=== PATIENT | female | born 1965 | race Caucasian/White ===

== ENCOUNTER 2022-08-07 12:02 | Outpatient (CLI) | payer OTHER, SELFPAY ==
[2022-08-07 13:54] LABS: Albumin* 4.2 g/dL (3.3-5.0)
[2022-08-07 13:55] LABS: Chloride* 105 mmol/L (96-114); Potassium* 3.6 mmol/L (3.6-5.1); Sodium* 139 mmol/L (135-149)
[2022-08-07 13:57] LABS: Alkaline Phosphatase* 80 U/L (40-150); Aspartate Amino Transferase* 29 U/L (12-35); Bilirubin Total* 0.7 mg/dL (0.1-1.5); Blood Urea Nitrogen* 11 mg/dL (7-30); Carbon Dioxide* 28 mmol/L (20-32); Creatinine* 0.7 mg/dL (0.5-1.5); Estimated Glomerular Filt Rate 100 ml/min; Total Protein* 6.5 g/dL (6.0-8.3)
[2022-08-07 13:58] LABS: Alanine Aminotransferase* 23 U/L (4-35); Calcium* 9.3 mg/dL (8.4-10.6); Glucose* 92 mg/dL (60-115); Lipase* 172 U/L (23-300)
== END 2022-08-07 12:03 | disposition home or self-care (01) ==
PROVIDERS: PCP Family Medicine; Visit Provider Family Medicine
DX: R10.13 Epigastric pain (principal)
CPT/HCPCS: 80053; 83690

== ENCOUNTER 2022-08-16 14:52 | Outpatient (CLI) | payer OTHER, SELFPAY ==
--- NOTE | 2022-08-16 16:00 | CRLHL7_ITS ---
For Patients: As a result of the Century Cures Act, medical imaging exams and procedure reports are released immediately into your electronic medical record. You may view this report before your referring provider. If you have questions, please contact your health care provider. Indication: EPIGASTRIC PAIN Technique: Postcontrast CT abdomen and pelvis. 99 cc Isovue 370 intravenous contrast. Oral water. Please note that all CT scans at this facility use dose modulation, iterative reconstruction, and/or weight-based dosing when appropriate to reduce radiation dose to as low as reasonably achievable. Comparison: None Findings: 2 centimeter hiatal hernia. Lung bases clear with the exception of mild linear subsegmental atelectasis in the lingula. No intrahepatic mass. Incidental cyst centrally measuring 9 millimeters. Gallbladder normal. Normal pancreas. Spleen normal. Normal adrenal glands. Normal kidneys and ureters. Normal appearance of the small bowel. No evidence of enteritis. No colitis. No bowel obstruction. No bladder stone. No abdominal wall hernia. Appendix appears normal. No free air, free fluid or abscess. Mild degenerative changes are present. There are vascular calcifications. No aneurysm. Mildly prominent central mesenteric lymph nodes are present within the left para midline mesenteric fat measuring up to 1.1 cm. Uterus absent. Impression: Mildly prominent central mesenteric lymph nodes within the left para midline abdomen measuring up to 1.1 cm, suggesting adenitis. 2 cm hiatal hernia. Incidental subcentimeter simple hepatic cyst. Status post hysterectomy. No pelvic soft tissue mass. Please note that all CT scans at this facility use dose modulation, iterative reconstruction, and/or weight-based dosing when appropriate to reduce radiation dose to as low as reasonably achievable. Dictated by Michel Mock MD @ 08/21/2022 9:32:37 AM (Electronically Signed)
== END 2022-08-16 14:53 | disposition home or self-care (01) ==
PROVIDERS: PCP Family Medicine; Visit Provider Family Medicine
DX: R10.13 Epigastric pain (principal); K44.9 Diaphragmatic hernia without obstruction or gangrene; K76.89 Other specified diseases of liver
CPT/HCPCS: 74177; Q9967

== ENCOUNTER 2022-09-07 09:00 | Day surgery (SDC) | payer OTHER, SELFPAY ==
[2022-09-07] VITALS (20 sets, daily range): BP systolic 103–162; BP diastolic 57–109; PULSE 70–84; RESP 14–18; TEMP 35.8–36.9; O2SAT 90–100; BMI 35.2
[2022-09-07] MEDS: LACTATED RINGERS 1000 ML 1,000 ML 100 ML IV ×2 (09:45→14:27)
[2022-09-07] MEDS: CELECOXIB 200 MG CAPSULE PO ×2 (09:55→21:45)
[2022-09-07] MEDS: ACETAMINOPHEN 500 MG TABLET 1000 MG PO ×2 (09:55→18:01)
[2022-09-07] MEDS: OXYCODONE (CR) 10 MG TAB.ER.12H PO (09:55)
--- NOTE | 2022-09-07 11:39 | SUR.PREOP ---
TIME?OUT:?1140 right knee PT/RN/MDA?VERIFICATION?OF?SURGICAL?SITE,?PROCEDURE,?AND?CONSENT OBTAINED?PRIOR?TO?INVASIVE?PROCEDURE.
[2022-09-07] MEDS: MIDAZOLAM HCL 1 MG/ML inj IVP (11:42)
[2022-09-07] MEDS: fentaNYL 100 MCG/2 ML inj IVP (11:42)
[2022-09-07] MEDS: CEFAZOLIN 2 GM INJ IVP (12:20)
[2022-09-07] MEDS: TRANEXAMIC ACID 100 MG/ML INJ 1000 MG IV (12:25)
--- NOTE | 2022-09-07 14:00 | CRLHL7_ITS ---
For Patients: As a result of the Cures Act, medical imaging exams and procedure reports are released immediately into your electronic medical record. You may view this report before your referring provider. If you have questions, please contact your health care provider. Indication: POST OP RT TKA Technique: Two views right knee Findings/Impression: Hardware from a right total knee arthroplasty is in satisfactory position. Bone alignment is normal. No sign of acute fracture. Postop changes are within normal limits. Dictated by Michel Mock MD @ 09/07/2022 3:27:30 PM (Electronically Signed)
--- NOTE | 2022-09-07 14:02 | PM.ORPRC ---
Procedure Note Date of procedure: 09/07/22 Procedure: PREOPERATIVE DIAGNOSIS: Right knee osteoarthritis, retained ACL hardware POSTOPERATIVE DIAGNOSIS: Right knee osteoarthritis, retained ACL hardware NAME OF OPERATION: Right total knee arthroplasty, hardware removal deep SURGEON: Iker Jiang MD DRILL SHARPENER: Yeny Díaz PA-C ANESTHESIA: Spinal ESTIMATED BLOOD LOSS: 0 mL COMPLICATIONS: None SPECIMENS: None DRAINS: None PREOPERATIVE ANTIBIOTICS: Ancef 2 grams IMPLANTS: 1. J&J Attune #6 posterior stabilized femur 2. #6 fixed-bearing tibia 3. #6 posterior stabilized, 5 mm fixed-bearing polyethylene 4. 35 patella INDICATIONS: The patient is a 57-year-old with a longstanding history of severe, unrelenting right knee pain secondary to end-stage (grade IV) right knee osteoarthritis after failed ACL reconstruction. Despite appropriate nonoperative management, including activity modification, anti-inflammatories, [id number] pain medication, bracing, physical therapy, and injections they continue to have pain and disability. Operative intervention was offered. The risks, benefits and expected outcomes were discussed in detail. These included but were not limited to: Infection, bleeding, injury to blood vessel or nerve, venous thromboembolism. All questions were answered to their satisfaction. Use of an social science research assistant was necessary throughout the case for patient positioning and safety, soft tissue retraction, and closure. PROCEDURE: Spinal anesthesia was administered. The patient was placed supine on the operating table. The social science research assistant made sure the patient was positioned appropriately. The lower extremity was prepped and draped in the usual sterile fashion. The limb was exsanguinated with the Jhon bandage. The pneumatic tourniquet was inflated to 300 mmHg. A standard anterior incision was made with the knee in flexion. Subcutaneous dissection was sharply taken through fascial layer #1. Full-thickness medial and lateral flaps were elevated. The social science research assistant retracted the soft tissues and protected them throughout the case. A standard medial parapatellar approach was made. The patella was everted. The infrapatellar fat pad was preserved. The menisci and cruciate ligaments were sharply d?brided. Marginal osteophytes were d?brided with the rongeur. The drill was used to penetrate the femoral canal. The canal was aspirated and irrigated with pulse lavage. The intramedullary femoral guide was placed for a 5-degree valgus cut, removing 10 mm off the distal femur. The saw was used to make the cut. Whitesides line and the trans epicondylar axis were marked. The femoral sizing guide was pinned onto the distal femur. Three degrees of external rotation nicely parallels the transepicondylar axis. Pins were placed for posterior referencing. The four-in-one cutting guide was pinned onto the distal femur. The anterior, posterior, and chamfer cuts were made. The social science research assistant protected the collateral ligaments. The box cutting guide was pinned. The box cuts were made. This exposed the femoral ACL interference screw. The screwdriver was used to remove the screw, intact. The boxed trial was placed and was an excellent fit. Drill holes for the lugs were made. Attention was then turned to the proximal tibia. The extramedullary tibial guide was placed for a neutral varus/valgus cut with 5 degrees of posterior slope, removing 2 mm based off the medial tibial surface. The social science research assistant protected the collateral ligaments and the neurovascular bundle. The saw was used to make the cut. This exposed the proximal tip of the tibial ACL interference screw. We followed the screw to the anteromedial face of the tibia and exposed it with the scalpel, rongeur and curette. The screw was removed intact. Tibial ACL tunnel was full of fat. This was debrided with the curette and rongeur. Trial components were placed. The knee was nicely balanced in both flexion and extension. The trial components were removed. The tray was placed in appropriate rotation, parallel to our tibial cutting pins. It was pinned by the social science research assistant and the drill and the punch were used. The tray was removed. The punch was used again. We placed a bone plug in the femoral canal. A bone plug was placed in both the femoral and tibial ACL interference screw tracts. Attention was then turned to the patella. [place] patellar thickness was 22 mm. The lobster claw resection guide was used with the 7.5 mm chino. The saw was used to make the cut. Drill holes were made by the social science research assistant. The trial was placed and was an excellent fit. Cancellous surfaces were irrigated with pulse lavage and thoroughly dried by the social science research assistant. We cemented the tibial component, then the femoral component. We impacted the 5 mm polyethylene onto the tibial tray. The knee was brought into full extension. We then cemented the patellar component. Excessive cement was removed. The cement was allowed to harden. The knee was taken through a range of motion and was found to be nicely balanced in both flexion and extension. The patella tracks centrally. The social science research assistant did a three minute dilute Betadine solution soak. The social science research assistant irrigated the wound with 3 liters of normal saline via pulse lavage. The social science research assistant reapproximated the extensor mechanism with #1 Vicryl in an interrupted [id number] fashion. The social science research assistant then ran the extensor mechanism with a #1 PDO Stratafix. The social science research assistant closed the subcutaneous tissues with a 3-0 Stratafix and the skin with a running 3-0 Stratafix in a subcuticular fashion. Glue was used to seal the skin. The social science research assistant placed a dry dressing, ELZA stocking, and Polar Care. Sponge and needle counts were correct x2. The patient tolerated the procedure well. There were no apparent complications. They were carefully transferred to the hospital bed and taken to the postanesthesia care unit in satisfactory condition. PLAN: The patient will be mobilized with physical therapy. Aspirin will be used for DVT prophylaxis. They will be discharged to home once medically appropriate.
--- NOTE | 2022-09-07 14:29 | W.PM.NB ---
Nerve Block Nerve Block Date Seen: 09/07/22 Type of block requested by surgeon for post-operative analgesia: adductor canal Side: right Time out performed: Yes Verification of patient name: Yes Verification of date of : Yes Site marking: site marked Name of person performing procedure: Polo Continuous monitoring Was continuous monitoring of O2 sat, B/P, manager cardiac, recorded every 15 minutes?: Yes Procedure Checklist: sterile prep, needles and gloves Ultrasound guided. Images saved: Yes Medications given in 5ml increments after negative aspiration: Ropivicaine %: 0.5 mL: 20 Needle gauge: 20 Decadron (mg): 10 Precedex (mcg): 25 Patient tolerated procedure well: Yes Additional comments: Needle noted adjacent to nerve Block Charges Block Charge (with Pro Fee): Femoral Nerve Use of Ultrasound Machine for Block: Yes- US Guidance/pain block
--- NOTE | 2022-09-07 14:30 | W.PM.NB ---
Nerve Block Nerve Block Date Seen: 09/07/22 Type of block requested by surgeon for post-operative analgesia: geniculars Side: right Time out performed: Yes Verification of patient name: Yes Verification of date of : Yes Site marking: site marked Name of person performing procedure: Polo Continuous monitoring Was continuous monitoring of O2 sat, B/P, athletic monitor, recorded every 15 minutes?: Yes Procedure Checklist: sterile prep, needles and gloves Medications given in 5ml increments after negative aspiration: Ropivicaine %: 0.5 mL: 9 Needle gauge: 25 Patient tolerated procedure well: Yes Block Charges Block Charge (with Pro Fee): Genicular Nerve Block Use of Ultrasound Machine for Block: No
--- NOTE | 2022-09-07 14:30 | W.ANESCHARGE ---
Anesthesia Charges Start Date/Time Anesthesia Start Date: 09/07/22 Anesthesia Start Time: 12:18 Stop Date/Time Anesthesia Stop Date: 09/07/22 Anesthesia Stop Time: 14:52 Summary Emergency: No
--- NOTE | 2022-09-07 14:51 | W.ANESCHARGE ---
Anesthesia Charges Start Date/Time Anesthesia Start Date: 09/07/22 Anesthesia Start Time: 12:18 Stop Date/Time Anesthesia Stop Date: 09/07/22 Anesthesia Stop Time: 14:52 Summary Emergency: No
--- NOTE | 2022-09-07 15:25 | SUR.PHASEI ---
patient meets pacu d/c criteria
[2022-09-07] MEDS: HYDROmorphone 0.5 mg/0.5 ml inj IVP (16:36)
[2022-09-07] MEDS: LACTATED RINGERS 1000 ML 1,000 ML 75 ML IV (16:41)
[2022-09-07] MEDS: CEFAZOLIN 2 GM in 0.9 % SODIUM CHLORIDE Mini-bag 100 ML IVPB (18:02)
[2022-09-07] MEDS: 0.9 % SODIUM CHLORIDE 500 ML IV (18:51)
--- NOTE | 2022-09-07 18:57 | PC.NURSE ---
Admission note: Pt brought to the unit on a bed by a member of SDS team at 1530. Conscious, A/O on arrival. Vitally stable but complained of chill. Heat applied. Dressing appeared dry and clean. Pt felt numbness to the right leg but able to wiggle the toes and slightly move the right leg. Pulse present, capillary refill<3 sec. Denied pain, nausea and vomiting. Lungs sound clear and hypo bowel sound. Icechips started and progressed to water 3hr after arrival. Cryo cuff applied, ELZA and SCD applied. IV ringers lactate 1000ml set up at 75/hr. Post op assessment for the first 6 hrs started at 1545. Pt complained of knee pain of 10, Deluded given. Attempt made to ambulate pt to BR and and recliner was refused by pt, rather opted rest. Pt complained of feeling hungry, regular diet started and pt able to eat about 50% and seems to tolerate meal very well. At 1830, pt has not pass urine, N/S 500ml bolus started.
[2022-09-07] MEDS: SENNOSIDES 1 TAB TABLET 2 TAB PO (21:45)
[2022-09-07] MEDS: ASPIRIN 81 MG TABLET EC PO (21:47)
[2022-09-07] MEDS: OXYCODONE 5 MG TABLET PO (21:47)
--- NOTE | 2022-09-07 22:28 | PC.NURSE ---
Pt up with assist of 1 and walker with gait belt. She vvoided x1 after 1 500cc bolus. IVF cont to infuse at this time. She is tolerating reg diet. Pain controlled with scheduled meds and oxycodone prn.
--- NOTE | 2022-09-07 22:33 | P.IMCN_ITS ---
Date of Consult Patient: [facility] Patient Consult date: 09/07/22 Requesting Physician: Orthopedics Primary Care Provider: Michel Kaplan MD Consult Narrative Reason for consult: Medical management of comorbidities Narrative: Fozia Yee is a 57 year old female who presented to the hospital today for an elective right TKA. There were no surgical or anesthetic complications noted during procedure. Patient's H&P reviewed, PCP is Dr. Kaplan. Past medical history significant for: LILA (not on CPAP), insomnia. History of blood clots: No within Postoperative plan: Home with partner Review of Systems Status of ROS: Reports: 10 or more systems reviewed and unremarkable except as noted in History and below PFSH [facility] Medical History (Updated 08/15/22 @ 20:54 by Michel Kaplan MD) Asthma COVID-19 GERD (gastroesophageal reflux disease) Insomnia Mild intermittent asthma Obstructive sleep apnea Osteoarthritis of right knee Osteoporosis Polymyalgia rheumatica Vitamin D deficiency Surgical History (Updated 09/07/22 @ 22:44 by Jamee Calzada MD) History of hysterectomy History of nasal septoplasty History of repair of congenital cleft palate History of right knee surgery S/P left knee arthroscopy (06/14/21) S/P trigger finger release (01/31/08) Social History (Updated 08/07/22 @ 22:36 by Michel Kaplan MD) Narrative: Single, no kids, Daikin Smoking Status: Never smoker Do you use any of these nicotine containing products: None How often do you have a drink containing alcohol: 2-3 times a week Alcohol type: beer How many standard drinks containing alcohol do you have on a typical day: 3 or 4 How often do you have six or more drinks on one occasion: Monthly AUDIT-C Alcohol total score: 6 Non-prescribed substance use: denies use Caffeine: No Are you using contraception or practicing any form of control: No Meds Home Medications and Allergies Home Medications Medication Instructions Recorded Confirmed Type piroxicam 20 mg capsule 20 mg PO DAILY 07/21/22 09/07/22 History omeprazole 20 mg capsule,delayed 20 mg PO DAILY 09/06/22 09/07/22 History release Allergies Allergy/AdvReac Type Severity Reaction Status Date / Time No Known Drug Allergies Allergy Verified 09/07/22 09:14 Exam Narrative: Exam Narrative: GEN: Alert and oriented, nontoxic in appearance HEENT: Normal external ears, EOMIs bilaterally, no scleral icterus CV: RRR, No concerning murmurs, rubs, or gallops R: LCTA bilaterally without concerning wheezing, rales, or rhonchi Ext: wwp, no concerning edema Skin: No concerning skin lesions or rashes on exposed skin Neuro: Nonfocal Psych: Appropriate Const: Vital Signs, click to edit/add: Vital Signs - 24 hr 09/07/22 09:27 09/07/22 11:40 09/07/22 11:50 Temperature 97.6 F Pulse Rate 72 74 70 Pulse Rate [Right Pulse Oximeter] Respiratory Rate 18 16 16 Blood Pressure 135/70 122/67 109/59 L Blood Pressure [Le ft Arm] Pulse Oximetry 98 96 95 Oxygen Delivery Me thod Room Air Nasal Cannula Nasal Cannula Oxygen Flow Rate 2 2 09/07/22 14:48 09/07/22 14:55 09/07/22 15:00 Temperature 97.7 F Pulse Rate 72 71 75 Pulse Rate [Right Pulse Oximeter] Respiratory Rate 14 16 16 Blood Pressure 103/60 111/60 133/67 Blood Pressure [Le ft Arm] Pulse Oximetry 97 93 100 Oxygen Delivery Me thod Room Air Oxygen Flow Rate 09/07/22 15:05 09/07/22 15:10 09/07/22 15:15 Temperature 98.4 F Pulse Rate 76 76 71 Pulse Rate [Right Pulse Oximeter] Respiratory Rate 16 14 16 Blood Pressure 107/94 H 121/91 H 111/75 Blood Pressure [Le ft Arm] Pulse Oximetry 99 97 93 Oxygen Delivery Me thod Oxygen Flow Rate 09/07/22 16:24 09/07/22 15:45 09/07/22 16:00 Temperature 96.4 F L 96.8 F L 97 F L Pulse Rate Pulse Rate [Right Pulse Oximeter] 73 76 71 Respiratory Rate 18 18 18 Blood Pressure Blood Pressure [Le ft Arm] 117/91 H 119/96 H 127/57 L Pulse Oximetry 95 96 97 Oxygen Delivery Me thod Room Air Room Air Room Air Oxygen Flow Rate 09/07/22 16:15 09/07/22 16:30 09/07/22 17:30 Temperature 97 F L 97.4 F L 97.5 F L Pulse Rate Pulse Rate [Right Pulse Oximeter] 74 77 83 Respiratory Rate 18 18 18 Blood Pressure Blood Pressure [Le ft Arm] 153/82 H 151/109 H 162/80 H Pulse Oximetry 98 99 95 Oxygen Delivery Me thod Room Air Room Air Room Air Oxygen Flow Rate 09/07/22 19:18 09/07/22 20:24 09/07/22 20:24 Temperature 97.2 F L 97.1 F L 97.1 F L Pulse Rate 79 Pulse Rate [Right Pulse Oximeter] 84 79 Respiratory Rate 18 18 18 Blood Pressure 127/78 Blood Pressure [Le ft Arm] 162/80 H 127/78 Pulse Oximetry 90 98 98 Oxygen Delivery Me thod Room Air Room Air Oxygen Flow Rate 09/07/22 19:00 09/07/22 20:10 Temperature 97.2 F L 97.1 F L Pulse Rate Pulse Rate [Right Pulse Oximeter] 79 79 Respiratory Rate 18 18 Blood Pressure Blood Pressure [Le ft Arm] 137/69 127/78 Pulse Oximetry 98 Oxygen Delivery Me thod Room Air Room Air Oxygen Flow Rate Assessment and Plan Assessment and plan (1) Status post right knee replacement: Problem comment: - 09/07/22 Status: Acute Plan - pain management and prophylaxis per orthopedic surgery team - continue home medications for comorbidities - anticipate routine postoperative course
[2022-09-08] MEDS: OXYCODONE 5 MG TABLET PO ×2 (01:23→05:54)
[2022-09-08] MEDS: ACETAMINOPHEN 500 MG TABLET 1000 MG PO ×2 (01:25→05:53)
[2022-09-08] MEDS: CEFAZOLIN 2 GM in 0.9 % SODIUM CHLORIDE Mini-bag 100 ML IVPB ×2 (01:26→10:13)
[2022-09-08 06:34] LABS: Basophils Percent Auto 0.1 % (0.0-3.0); Hematocrit 39.9 % (33.0-51.0); Hemoglobin* 13.3 gm/dL (12.0-16.0); Immature Granulocytes Pct Auto 0.3 %; Lymphocytes Percent Auto 9.3 % (20-44); Mean Corpuscular HGB Conc 33 gm/dL (32-36); Mean Corpuscular Hemoglobin 31 pg (26-34); Mean Corpuscular Volume 92 fL (80-100); Monocytes Percent Auto 6.7 % (0.0-11.0); Neutrophils Percent Auto 83.6 % (42.0-72.0); Platelet Count* 386 K/uL (140-440); RDW Coefficient of Variation % 11.8 % (11.5-15.5); Red Blood Count 4.34 m/uL (4.00-5.20); White Blood Count* 15.66 K/uL (4.50-11.00)
[2022-09-08 06:52] LABS: Slide Review Reflex No
[2022-09-08 06:53] LABS: Potassium* 4.4 mmol/L (3.6-5.1); Sodium* 137 mmol/L (135-149)
[2022-09-08 06:56] LABS: Blood Urea Nitrogen* 11 mg/dL (7-30); Creatinine* 0.6 mg/dL (0.5-1.5); Est. Creatinine Clearance* 95.68; Estimated Glomerular Filt Rate 104 ml/min
[2022-09-08 07:00] VITALS: BP 120/62; PULSE 66; RESP 18; TEMP 36; O2SAT 100
[2022-09-08 07:00] LABS: INR 0.92 (0.91-1.10); Prothrombin Time 12.9 Seconds
[2022-09-08] MEDS: SENNOSIDES 1 TAB TABLET 2 TAB PO (08:21)
[2022-09-08] MEDS: CELECOXIB 200 MG CAPSULE PO (08:22)
[2022-09-08] MEDS: ASPIRIN 81 MG TABLET EC PO (08:22)
--- NOTE | 2022-09-08 08:31 | P.ORPN_ITS ---
Subjective Subjective Time Seen by Provider: 07:30 Date Seen: 09/08/22 Principal diagnosis: Status post right knee replacement Interval history: Fozia is comfortable this morning. She got minimal sleep last night. She will be discharging to today. She requests a handicap parking permit. Ortho Exam Narrative Exam Narrative: Alert and oriented x3. Patient is in no acute distress. Converses without labored breathing. Hearing is grossly intact. Ambulates with a walker. Examination of the right knee shows dressing is in place. Mild soft tissue edema. Mild effusion. Bilateral calves are soft and nontender. CMS is intact right lower extremity. Strong quads Const Vital Signs, click to edit/add: Vital Signs - 24 hr 09/07/22 09:27 09/07/22 11:40 09/07/22 11:50 Temperature 97.6 F Pulse Rate 72 74 70 Pulse Rate [Right Pulse Oximeter] Respiratory Rate 18 16 16 Blood Pressure 135/70 122/67 109/59 L Blood Pressure [Left Arm] Pulse Oximetry 98 96 95 Oxygen Delivery Method Room Air Nasal Cannula Nasal Cannula Oxygen Flow Rate 2 2 09/07/22 14:48 09/07/22 14:55 09/07/22 15:00 Temperature 97.7 F Pulse Rate 72 71 75 Pulse Rate [Right Pulse Oximeter] Respiratory Rate 14 16 16 Blood Pressure 103/60 111/60 133/67 Blood Pressure [Left Arm] Pulse Oximetry 97 93 100 Oxygen Delivery Method Room Air Oxygen Flow Rate 09/07/22 15:05 09/07/22 15:10 09/07/22 15:15 Temperature 98.4 F Pulse Rate 76 76 71 Pulse Rate [Right Pulse Oximeter] Respiratory Rate 16 14 16 Blood Pressure 107/94 H 121/91 H 111/75 Blood Pressure [Left Arm] Pulse Oximetry 99 97 93 Oxygen Delivery Method Oxygen Flow Rate 09/07/22 16:24 09/07/22 15:45 09/07/22 16:00 Temperature 96.4 F L 96.8 F L 97 F L Pulse Rate Pulse Rate [Right Pulse Oximeter] 73 76 71 Respiratory Rate 18 18 18 Blood Pressure Blood Pressure [Left Arm] 117/91 H 119/96 H 127/57 L Pulse Oximetry 95 96 97 Oxygen Delivery Method Room Air Room Air Room Air Oxygen Flow Rate 09/07/22 16:15 09/07/22 16:30 09/07/22 17:30 Temperature 97 F L 97.4 F L 97.5 F L Pulse Rate Pulse Rate [Right Pulse Oximeter] 74 77 83 Respiratory Rate 18 18 18 Blood Pressure Blood Pressure [Left Arm] 153/82 H 151/109 H 162/80 H Pulse Oximetry 98 99 95 Oxygen Delivery Method Room Air Room Air Room Air Oxygen Flow Rate 09/07/22 19:18 09/07/22 20:24 09/07/22 20:24 Temperature 97.2 F L 97.1 F L 97.1 F L Pulse Rate 79 Pulse Rate [Right Pulse Oximeter] 84 79 Respiratory Rate 18 18 18 Blood Pressure 127/78 Blood Pressure [Left Arm] 162/80 H 127/78 Pulse Oximetry 90 98 98 Oxygen Delivery Method Room Air Room Air Oxygen Flow Rate 09/07/22 19:00 09/07/22 20:10 09/07/22 23:00 Temperature 97.2 F L 97.1 F L Pulse Rate Pulse Rate [Right Pulse Oximeter] 79 79 Respiratory Rate 18 18 Blood Pressure Blood Pressure [Left Arm] 137/69 127/78 Pulse Oximetry 98 98 Oxygen Delivery Method Room Air Room Air Oxygen Flow Rate Assessment and Plan Assessment and plan (1) Status post right knee replacement: Problem details: - 09/07/22 Status: Acute Assessment and Plan: Plan for discharge is today to home if they meet discharge criteria. DVT prophylaxis includes aspirin 81 mg twice daily x1 month, Hever stockings x1 month may remove for 1 hr per day, frequent ambulation Remove dressing in 1 week. Observe wound and phone Orthopedics with any questions or concerns Return to clinic in 1 week for a wound check Return to clinic in [address] Jiang Minimize narcotic use. Wean off and discontinue soon as possible. Activities as tolerated. No strenuous activity. Outpatient physical therapy as scheduled. Ice and elevate the operative extremity. No restriction on ice. A handicap parking permit will be filled out and ready for her or a family member to pickling operator in the [place] office.
--- NOTE | 2022-09-08 09:16 | REH.OT ---
Orders received for OT eval and treat post RTKA. Formal evaluation not needed. Patient I in dressing and has no concerns with discharging home.
[2022-09-08 09:21] VITALS: BP 127/78; PULSE 79; RESP 18; TEMP 36
--- NOTE | 2022-09-08 11:34 | PC.NURSE ---
PATIENT DISCHARGED TO HOME WITH SIGNIFICANT OTHER, PATIENT RATING PAIN 0 AT REST TO HURTS LIKE HELL WITH MOVEMENT, OFFERED OXYCODONE AND PATIENT DECLINED I DO NOT WANT ANYMORE OF THAT, CYRO CUFF TO SITE AND TAKING SCHEDULED TYLENOL, TOLERATING REGULAR DIET NO NAUSEA, DRESSING TO RIGHT KNEE CDI, PATIENT VERBALIZED UNDERSTANDING OF DISCHARGE INFORMATION AND HAD NO FURTHER QUESTIONS AT THIS TIME, IV REMOVED, BELONGINGS SENT WITH PATIENT, LEFT TO HOME WITH SIGNIFICANT OTHER VIA WHEELCHAIR AROUND 1115.
--- NOTE | 2022-09-08 12:51 | SUR.PREOP ---
I reviewed Lilia's pre-op charting and found it to be complete to the best of my knowledge. I entered the completed by information in pre-op so the chart could be verified.
== END 2022-09-08 11:15 | disposition home or self-care (01) ==
LOC: OR 09:32 → MEDSURG 09:35
PROVIDERS: PCP Family Medicine; Visit Provider Orthopaedic Surgery
PROC: (CPT 27447; principal; 2022-09-07 11:30)
DX: M17.11 Unilateral primary osteoarthritis, right knee (principal); M25.561 Pain in right knee; G47.33 Obstructive sleep apnea (adult) (pediatric); J45.20 Mild intermittent asthma, uncomplicated; M35.3 Polymyalgia rheumatica; M81.0 Age-related osteoporosis without current pathological fracture; G47.00 Insomnia, unspecified; K21.9 Gastro-esophageal reflux disease without esophagitis
CPT/HCPCS: 27447; 01402; 36415; 64447; 64454; 73560; 76942; 82565; 84132; 84295; 84520; 85025; 85610; 97110; 97161; A9270; C1776; J0690; J1100; J1170; J2250; J2405; J2704; J2795; J3010; J7120

== ENCOUNTER 2023-02-26 10:23 | Outpatient (CLI) | payer OTHER, SELFPAY ==
--- OUTSIDE RECORDS SUMMARY | 2023-02-26 10:28 | XMS_ITS | Continuity of Care Document ---
Author Name Unknown Organization [facility] Address [address] [place] [address] Phone Care Team Providers Care Research Program Internship Name Role Phone Ziggy Waters DO Unavailable Unavailable Allergies, Adverse Reactions, Alerts Substance Reaction Status Criticality No Known Allergies Active No Inform ation Medications Medication Instructions Dosage Effective Dates (start - stop) Status Comments piroxicam 20 mg capsule take 1 capsule by oral route every day 20 MG - Active tramadol 50 mg tablet take 1-2 tablets by oral route every 4 - 6 hours as needed - Active prednisone 1 mg tablet 2mg daily - No Longer Active Procedures Procedure Date Office/Outpatient Visit, Est Routine Venipuncture Rbc Sed Rate, Nonautomated CReactive Protein Complete Cbc WAuto Diff Wbc Office/Outpatient Visit, Est Routine Venipuncture Rbc Sed Rate, Nonautomated CReactive Protein Complete Cbc WAuto Diff Wbc Office/Outpatient Visit, Est Office/Outpatient Visit, Est Routine Venipuncture Rbc Sed Rate, Nonautomated CReactive Protein Complete Cbc WAuto Diff Wbc Office/Outpatient Visit, Est Routine Venipuncture Rbc Sed Rate, Nonautomated CReactive Protein Complete Cbc WAuto Diff Wbc Office/Outpatient Visit, Est Routine Venipuncture Rbc Sed Rate, Nonautomated CReactive Protein Complete Cbc WAuto Diff Wbc Office/Outpatient Visit, Est Routine Venipuncture Rbc Sed Rate, Nonautomated CReactive Protein Complete Cbc WAuto Diff Wbc Office/Outpatient Visit, Est Office/Outpatient Visit, Est Routine Venipuncture Rbc Sed Rate, Nonautomated CReactive Protein Complete Cbc WAuto Diff Wbc Office/Outpatient Visit, Est Routine Venipuncture Specimen Handling Rbc Sed Rate, Nonautomated Assay Of Serum Albumin Assay Of Creatinine Transferase (Ast) (Sgot) Alanine Amino (Alt) (Sgpt) CReactive Protein CCP Antibody Complete Cbc WAuto Diff Wbc Results Test Name Date and Time Measure Units Reference Range Abnormal Flag Status Commen ts Panel Description: CBC 5 part diff Final Neutrophils# 12:19:00 3.29 K/uL 2.00-7.50 Final Neutrophil % 12:19:00 54.00 % 0.00-99.00 Final Eosinophil # 12:19:00 0.45 K/uL 0.00-0.50 Final Eosinophil % 12:19:00 7.40 % 0.00-7.00 H Final Basophil # 12:19:00 0.04 K/uL 0.00-0.20 Final Basophil % 12:19:00 0.60 % 0.00-99.00 Final WBC 12:19:00 6.1 K/uL 4.0-10.0 Final RBC 12:19:00 4.44 M/uL 3.80-5.80 Final Hemoglobin 12:19:00 13.7 g/dL 11.5-16.0 Final Hematocrit 12:19:00 42.1 % 37.0-47.0 Final MCV 12:19:00 95 fL 80-100 Final MCH 12:19:00 31.0 pg 27.0-32.0 Final MCHC 12:19:00 32.6 g/dL 32.0-36.0 Final RDW 12:19:00 12.2 % 11.0-16.0 Final Platelet Count 12:19:00 259 K/uL 150-500 Final MPV 12:19:00 7.2 fL 6.0-11.0 Final Lymphocyte% 12:19:00 31.20 % 25.00-50.00 Final Lymphocyte # 12:19:00 1.9 K/uL 1.0-4.0 Final Monocytes # 12:19:00 0.41 K/uL 0.20-1.00 Final Monocytes % 12:19:00 6.80 % 2.00-10.00 Final Panel Description: ESR Final ESR 12:32:00 7 mm/hr 0-25 Final Panel Description: CRP Final CRP 13:22:00 0.24 MG/DL 0.00-0.60 Final Advance Directives Directive Yes / No Effective Date File Name No Information Encounters Encounter Description Practice Location Reason(s) For Visit Diagnoses Date Provider Providers Copied on Encounter Office/Outpa tient Visit, Est [facility], [address], [place], [address], [place] tel:[phone] [facility] , PMR (chief complaint) MCFP (current) use of systemic steroidsPoly myalgia rheumaticaTr igger finger, left middle finger 2 Jt Trinh. [facility] [address], [place], [address], [place]. tel:[phone] Referring Provider: Ziggy Jamison, [facility] [address], [place], [address]. tel:[phone] Office/Outpa tient Visit, Est [facility], [address], [place], [address], [place] tel:[phone] [facility] , PMR (chief complaint) Polymyalgia rheumaticaLo ng term (current) use of systemic steroids 2 Jt Trinh. [facility] [address], [place], [address], [place]. tel:[phone] Referring Provider: Ziggy Jamison, [facility] [address], [place], [address]. tel:[phone] Office/Outpa tient Visit, Est [facility], [address], [place], [address], [place] tel:[phone] [facility] , PMR (chief complaint) Pain in unspecified jointPolymya lgia rheumaticaAn terior chest-wall pain NOS 1 Jt Trinh. [facility] [address], [place], [address], [place]. tel:[phone] Referring Provider: Ziggy Jamison, [facility] [address], [place], [address]. tel:[phone] Office/Outpa tient Visit, Est [facility], [address], [place], [address], [place] tel:[phone] [facility] , PMR (chief complaint) Pain in unspecified jointPolymya lgia rheumaticaAn terior chest-wall pain NOS 1 Jt Trinh. [facility] [address], [place], [address], [place]. tel:[phone] Referring Provider: Ziggy Jamison, [facility] [address], [place], [address]. tel:[phone] Office/Outpa tient Visit, Est [facility], [address], [place], [address], [place] tel:[phone] [facility] , Acute bronchitis, unspecifiedP ain in unspecified jointPolymya lgia rheumatica 1 Jt Trinh. [facility] [address], [place], [address], [place]. tel:[phone] Referring Provider: Ziggy Jamison, [facility] [address], [place], [address]. tel:[phone] Office/Outpa tient Visit, Est [facility], [address], [place], [address], [place] tel:[phone] [facility] , Acute bronchitis, unspecifiedP ain in unspecified jointPolymya lgia rheumatica 0 Jt Trinh. [facility] [address], [place], [address], [place]. tel:[phone] Referring Provider: Ziggy Jamison, [facility] [address], [place], [address]. tel:[phone] Office/Outpa tient Visit, Est [facility], [address], [place], [address], [place] tel:[phone] [facility] , Pain in unspecified jointPolymya lgia rheumaticaAc [place] bronchitis, unspecified Dec- 0 Jt Trinh. [facility] [address], [place], [address], [place]. tel:[phone] Referring Provider: Ziggy Jamison, [facility] [address], [place], [address]. tel:[phone] Office/Outpa tient Visit, Est [facility], [address], [place], [address], [place] tel:[phone] [facility] , Pain in unspecified jointPolymya lgia rheumaticaEl evated erythrocyte sedimentatio n rateAcute bronchitis, unspecified 0 0 Jt Trinh. [facility] [address], [place], [address], [place]. tel:[phone] Referring Provider: Ziggy Jamison, [facility] [address], [place], [address]. tel:[phone] Office/Outpa tient Visit, Est [facility], [address], [place], [address], [place] tel:[phone] [facility] , Polymyalgia rheumaticaPa in in unspecified jointElevate d erythrocyte sedimentatio n rate Sep-2 0- 9 Jt Trinh. [facility] [address], [place], [address], [place]. tel:[phone] Referring Provider: Ziggy Jamison, [facility] [address], [place], [address]. tel:[phone] Office/Outpa tient Visit, Est [facility], [address], [place], [address], [place] tel:[phone] [facility] , Pain in unspecified jointMyalgia , unspecified siteElevated erythrocyte sedimentatio n rateOther fatigue 0201 9 Jt Trinh. [facility] [address], [place], [address], [place]. tel:[phone] Referring Provider: Ziggy Jamison, [facility] [address], [place], [address]. tel:[phone] Family History Family Member Type Diagnosis Age At Onset Brother Problem (finding) Cardiovascular disease Mother Problem (finding) osteoarthritis Brother Problem (finding) Cancer, unknown Brother Problem (finding) Renal disease Brother Problem (finding) disorder of lung Brother Problem (finding) osteoarthritis Sister Problem (finding) Cancer, unknown Immunizations Vaccine Date Status Comments COVID-19 Pfizer administered Source: Othe r Provider COVID-19 Pfizer administered Source: Othe r Provider Payers Payer name Insurance type Covered green party ID [facility]it [id number] Social History Type Description Quantity Date Captured Comments Alcohol Use Details Unknown Caffeine Use Details Unknown Tobacco Use Status Current non-smoker Smoking Status Never smoker Non-Smoking Tobacco Use Details : No Details Available : No Details Available Sex Female Vital Signs Date / Time: Height Weight BMI Pulse Rate Blood Pressure Temperature Respiratory Rate Body Surface Area Head Circumference Head Circ. Percentile Wt./Suresh. Percentile BMI percentile Pulse Ox Inhaled Ox 11:43 AM 65.50 in 97.795 kg (215.60 lbs) 35.3 3 kg/m eter (2) 130/78 mm[Hg] 97.40 F Chief Complaint And Reason For Visit From encounter dated '02/10/2022 11:30'. PMR (chief complaint) Reason For Referral Reason For Referral No Information Plan Of Treatment Date Type Action Status No Information History Of Present Illness Encounter Date Complaint History Of Prese nt Illness PMR PMR PMR PMR Functional Status Date Functional Assessmen t No Information Instructions Date Instruction Additional Infor mation No Information Assessments Type Assessment Date assessment MCFP (current) use of syste fortino steroids assessment Polymyalgia rheumatica assessment Trigger finger, left middle fing er Mental Status Date Cognitive Assessment Orientation - [place] ed to time, place, person, situation. Patient Care Teams Name Effective Dates (start - stop) Status Members No Information
== END 2023-02-26 10:24 | disposition home or self-care (01) ==
PROVIDERS: PCP Family Medicine; Visit Provider Family Medicine
DX: Z00.00 Encounter for general adult medical examination without abnormal findings (principal); R53.83 Other fatigue; E55.9 Vitamin D deficiency, unspecified; Z13.6 Encounter for screening for cardiovascular disorders
CPT/HCPCS: 80048; 80061; 84443; 85025; 85651

== ENCOUNTER 2023-03-22 14:05 | Outpatient (CLI) | payer OTHER, SELFPAY ==
--- OUTSIDE RECORDS SUMMARY | 2023-03-22 14:07 | XMS_ITS | Continuity of Care Document ---
Author Name Unknown Organization [facility] Address [address] [place] [address] Phone Care Team Providers Care Kiln Transfer Operator Name Role Phone Ziggy Waters DO Unavailable [...] tient Visit, Est [facility], [address], [place], [address], [place] tel:[phone] [facility] , PMR (chief complaint) senior care (current) use of systemic steroidsPoly myalgia rheumaticaTr igger finger, left middle finger 2 Jt Trinh. [facility] [address], [place], [address], [place]. tel:[phone] Referring Provider: Ziggy Jamison, [facility] [address], [place], [address]. tel:[phone] Office/Outpa tient Visit, Est [facility], [address], [place], [address], [place] tel:[phone] [facility] , PMR (chief complaint) Polymyalgia rheumaticaLo ng term (current) use of systemic steroids 2 Jt Trinh. [facility] [address], [place], [address], [place]. tel:[phone] Referring Provider: Ziggy Jamison, [facility] [address], [place], [address]. tel:[phone] Office/Outpa tient Visit, Est [facility], [address], [place], [address], [place] tel:[phone] [facility] , PMR (chief complaint) Pain in unspecified jointPolymya lgia rheumaticaAn terior chest-wall pain NOS 1 Jt Trinh. [facility] [address], [place], [address], [place]. tel:[phone] Referring Provider: Ziggy Jamison, [facility] [address], [place], [address]. tel:[phone] Office/Outpa tient Visit, Est [facility], [address], [place], [address], [place] tel:[phone] [facility] , PMR (chief complaint) Pain in unspecified jointPolymya lgia rheumaticaAn terior chest-wall pain NOS 1 Jt Trinh. [facility] [address], [place], [address], [place]. tel:[phone] Referring Provider: Ziggy Jamison, [facility] [address], [place], [address]. tel:[phone] Office/Outpa tient Visit, Est [facility], [address], [place], [address], [place] tel:[phone] [facility] , Acute bronchitis, unspecifiedP ain in unspecified jointPolymya lgia rheumatica 1 Jt Trinh. [facility] [address], [place], [address], [place]. tel:[phone] Referring Provider: Ziggy Jamison, [facility] [address], [place], [address]. tel:[phone] Office/Outpa tient Visit, Est [facility], [address], [place], [address], [place] tel:[phone] [facility] , Acute bronchitis, unspecifiedP ain in unspecified jointPolymya lgia rheumatica 0 Jt Trinh. [facility] [address], [place], [address], [place]. tel:[phone] Referring Provider: Ziggy Jamison, [facility] [address], [place], [address]. tel:[phone] Office/Outpa tient Visit, Est [facility], [address], [place], [address], [place] tel:[phone] [facility] , Pain in unspecified jointPolymya lgia rheumaticaAc [place] bronchitis, unspecified Dec- 0 Jt Trinh. [facility] [address], [place], [address], [place]. tel:[phone] Referring Provider: Ziggy Jamison, [facility] [address], [place], [address]. tel:[phone] Office/Outpa tient Visit, Est [facility], [address], [place], [address], [place] tel:[phone] [facility] , Pain in unspecified jointPolymya lgia rheumaticaEl evated erythrocyte sedimentatio n rateAcute bronchitis, unspecified 0 0 Jt Trinh. [facility] [address], [place], [address], [place]. tel:[phone] Referring Provider: Ziggy Jamison, [facility] [address], [place], [address]. tel:[phone] Office/Outpa tient Visit, Est [facility], [address], [place], [address], [place] tel:[phone] [facility] , Polymyalgia rheumaticaPa in in unspecified jointElevate d erythrocyte sedimentatio n rate Sep-2 0- 9 Jt Trinh. [facility] [address], [place], [address], [place]. tel:[phone] Referring Provider: Ziggy Jamison, [facility] [address], [place], [address]. tel:[phone] Office/Outpa tient Visit, Est [facility], [address], [place], [address], [place] tel:[phone] [facility] , Pain in unspecified jointMyalgia , unspecified siteElevated erythrocyte sedimentatio n rateOther fatigue 0201 9 Jt Trinh. [facility] [address], [place], [address], [place]. tel:[phone] Referring Provider: Ziggy Jamison, [facility] [address], [place], [address]. tel:[phone] Family History Family Member Type Diagnosis Age [...] Provider Payers Payer name Insurance type Covered libertarian ID Sumit fong[facility] [id number] Social History Type Description Quantity Date Captured [...] No Information Assessments Type Assessment Date assessment senior care (current) use of syste fortino steroids assessment Polymyalgia rheumatica assessment Trigger finger, left middle fing er Mental Status Date Cognitive Assessment Orientation - [place] ed to time, place, person, situation. Patient Care Teams Name Effective Dates (start - stop) Status Members No Information
--- NOTE | 2023-03-22 14:30 | CRLHL7_ITS ---
For Patients: As a result of the Century Cures Act, medical imaging exams and procedure reports are released immediately into your electronic medical record. You may view this report before your referring provider. If you have questions, please contact your health care provider. DXA BONE MINERAL DENSITY STUDY Current height (in): 65.0. Weight (lb): 216.0. Menopause age: 57. Ethnicity: White. Reason for exam: Osteoporosis. 1. Have you had a previous hip or vertebral fracture? Yes. 2. Have you had any fractures during your adult life which did not result from significant trauma (e.g., auto accident)? Yes. 3. Did either of your parents have a hip fracture? No. 4. Do you smoke? No. 5. Have you ever taken Glucocorticoids? No. 6. Do you have rheumatoid arthritis? Yes. 7. Do you have secondary osteoporosis? No. 8. Do you drink 3 or more alcoholic drinks per day? No. 9. Are you being treated for osteoporosis? No. 10. Have you ever taken any of the following medications: Actonel, Evista, Fosamax, Miacalcin, Reclast, Boniva, Forteo, HRT (i.e. estrogen/hormone therapy), Protelos, Prolia, Vitamin D, Calcium, other ??? please specify. ANSWER: Yes, vitamin D. 11. Do you have any of the following medical conditions: Anorexia or bulimia, asthma or emphysema, end stage renal disease, hyperparathyroidism, any seizure disorders, cancer, inflammatory bowel diseases, hysterectomy, other ??? please specify. ANSWER: Yes, asthma or emphysema, PMR, hysterectomy. 12. What was your maximum height (inches)? 66. 13. Do you perform weight bearing exercise regularly? No. 14. Do you regularly consume dairy products? No. 15. Do you drink caffeinated beverages? Yes. 16. At what age did your period start? 13. 17. Are you premenopausal? No. 18. How many full term pregnancies have you had? 1. 19. Have you ever missed your period for more than 6 months in a row (not including or menopause)? Yes. TECHNIQUE: Bone mineral density study was performed using the [employer]. FINDINGS: The results of the study expressed as bone mineral density (BMD) are as follows: Lumbar spine L1, L2, L4: BMD: 0.963 g/cm2. T-score: -0.6. Z-score: 0.7. Neck Left: BMD: 0.710 g/cm2. T-score: -1.2. Z-score: -0.0. Right: BMD: 0.701 g/cm2. T-score: -1.3. Z-score: -0.1. Total Left: BMD: 0.847 g/cm2. T-score: -0.8. Z-score: 0.1. Right: BMD: 0.765 g/cm2. T-score: -1.5. Z-score: -0.6. IMPRESSION: Osteopenia. Michel Mock M.D. Diagnostic Radiologist [email or web address] Transcribed: 4:15 pm DW/Dictated by: Michel Mock MD @ 03/22/2023 3:51:00 PM (Electronically Signed)
== END 2023-03-22 14:06 | disposition home or self-care (01) ==
LOC: RAD 14:06
PROVIDERS: PCP Family Medicine; Visit Provider Family Medicine
DX: M81.0 Age-related osteoporosis without current pathological fracture (principal); M85.89 Other specified disorders of bone density and structure, multiple sites
CPT/HCPCS: 77080

== ENCOUNTER 2023-03-23 10:46 | Outpatient (CLI) | payer OTHER, SELFPAY ==
--- NOTE | 2023-03-23 08:28 | W.ANESCHARGE ---
Anesthesia Charges Start Date/Time Anesthesia Start Date: 03/23/23 Anesthesia Start Time: 11:15 Stop Date/Time Anesthesia Stop Date: 03/23/23 Anesthesia Stop Time: 11:38
--- OUTSIDE RECORDS SUMMARY | 2023-03-23 10:48 | XMS_ITS | Continuity of Care Document ---
Author Name Unknown Organization [facility] Address [address] [place] [address] Phone Care Team Providers Care Valet Runner Name Role Phone Ziggy Waters DO Unavailable [...] tient Visit, Est [facility], [address], [place], [address], [place] tel:[phone] [facility] , PMR (chief complaint) residential (current) use of systemic steroidsPoly myalgia rheumaticaTr igger finger, left middle finger 2 Jt Trinh. [facility] [address], [place], [address], [place]. tel:[phone] Referring Provider: Ziggy Jamison, [facility] [address], [place], [address]. tel:[phone] Office/Outpa tient Visit, Est [facility], [address], [place], [address], [place] tel:[phone] [facility] , PMR (chief complaint) Polymyalgia rheumaticaLo ng term (current) use of systemic steroids 2 Jt Trinh. [facility] [address], [place], [address], [place]. tel:[phone] Referring Provider: Ziggy Jamison, [facility] [address], [place], [address]. tel:[phone] Office/Outpa tient Visit, Est [facility], [address], [place], [address], [place] tel:[phone] [facility] , PMR (chief complaint) Pain in unspecified jointPolymya lgia rheumaticaAn terior chest-wall pain NOS 1 Jt Trinh. [facility] [address], [place], [address], [place]. tel:[phone] Referring Provider: Ziggy Jamison, [facility] [address], [place], [address]. tel:[phone] Office/Outpa tient Visit, Est [facility], [address], [place], [address], [place] tel:[phone] [facility] , PMR (chief complaint) Pain in unspecified jointPolymya lgia rheumaticaAn terior chest-wall pain NOS 1 Jt Trinh. [facility] [address], [place], [address], [place]. tel:[phone] Referring Provider: Ziggy Jamison, [facility] [address], [place], [address]. tel:[phone] Office/Outpa tient Visit, Est [facility], [address], [place], [address], [place] tel:[phone] [facility] , Acute bronchitis, unspecifiedP ain in unspecified jointPolymya lgia rheumatica 1 Jt Trinh. [facility] [address], [place], [address], [place]. tel:[phone] Referring Provider: Ziggy Jamison, [facility] [address], [place], [address]. tel:[phone] Office/Outpa tient Visit, Est [facility], [address], [place], [address], [place] tel:[phone] [facility] , Acute bronchitis, unspecifiedP ain in unspecified jointPolymya lgia rheumatica 0 Jt Trinh. [facility] [address], [place], [address], [place]. tel:[phone] Referring Provider: Ziggy Jamison, [facility] [address], [place], [address]. tel:[phone] Office/Outpa tient Visit, Est [facility], [address], [place], [address], [place] tel:[phone] [facility] , Pain in unspecified jointPolymya lgia rheumaticaAc [place] bronchitis, unspecified Dec- 0 Jt Trinh. [facility] [address], [place], [address], [place]. tel:[phone] Referring Provider: Ziggy Jamison, [facility] [address], [place], [address]. tel:[phone] Office/Outpa tient Visit, Est [facility], [address], [place], [address], [place] tel:[phone] [facility] , Pain in unspecified jointPolymya lgia rheumaticaEl evated erythrocyte sedimentatio n rateAcute bronchitis, unspecified 0 0 Jt Trinh. [facility] [address], [place], [address], [place]. tel:[phone] Referring Provider: Ziggy Jamison, [facility] [address], [place], [address]. tel:[phone] Office/Outpa tient Visit, Est [facility], [address], [place], [address], [place] tel:[phone] [facility] , Polymyalgia rheumaticaPa in in unspecified jointElevate d erythrocyte sedimentatio n rate Sep-2 0- 9 Jt Trinh. [facility] [address], [place], [address], [place]. tel:[phone] Referring Provider: Ziggy Jamison, [facility] [address], [place], [address]. tel:[phone] Office/Outpa tient Visit, Est [facility], [address], [place], [address], [place] tel:[phone] [facility] , Pain in unspecified jointMyalgia , unspecified siteElevated erythrocyte sedimentatio n rateOther fatigue 0201 9 Jt Trinh. [facility] [address], [place], [address], [place]. tel:[phone] Referring Provider: Ziggy Jamison, [facility] [address], [place], [address]. tel:[phone] Family History Family Member Type Diagnosis Age [...] Provider Payers Payer name Insurance type Covered democrat ID [facility]it [id number] Social History Type Description Quantity Date Captured [...] No Information Assessments Type Assessment Date assessment residential (current) use of syste fortino steroids assessment Polymyalgia rheumatica assessment Trigger finger, left middle fing er Mental Status Date Cognitive Assessment Orientation - [place] ed to time, place, person, situation. Patient Care Teams Name Effective Dates (start - stop) Status Members No Information
--- NOTE | 2023-03-23 11:41 | W.ANESCHARGE ---
Anesthesia Charges Start Date/Time Anesthesia Start Date: 03/23/23 Anesthesia Start Time: 11:15 Stop Date/Time Anesthesia Stop Date: 03/23/23 Anesthesia Stop Time: 11:38
== END 2023-03-23 10:47 | disposition home or self-care (01) ==
LOC: OP CLINIC 10:46
PROVIDERS: PCP Family Medicine; Visit Provider Internal Medicine
DX: Z12.11 Encounter for screening for malignant neoplasm of colon (principal); K64.8 Other hemorrhoids; K57.30 Diverticulosis of large intestine without perforation or abscess without bleeding
CPT/HCPCS: 00812; 45378; J2704

== ENCOUNTER 2023-05-18 08:49 | Outpatient (CLI) | payer OTHER, SELFPAY ==
--- OUTSIDE RECORDS SUMMARY | 2023-05-18 08:53 | XMS_ITS | Continuity of Care Document ---
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 [facility] [address], [place], [address], [place]. tel:[phone] Referring Provider: Ziggy Jamison, [facility] [address], [place], [address]. tel:[phone] Office/Outpa tient Visit, Est [facility], [address], [place], [address], [place] tel:[phone] [facility] , PMR (chief complaint) Polymyalgia rheumaticaLo ng term (current) use of systemic steroids 2 Jt Trinh. [facility] [address], [place], [address], [place]. tel:[phone] Referring Provider: Ziggy Jamison, [facility] [address], [place], [address]. tel:[phone] Office/Outpa tient Visit, Est [facility], [address], [place], [address], [place] tel:[phone] [facility] , PMR (chief complaint) Pain in unspecified jointPolymya lgia rheumaticaAn terior chest-wall pain NOS 1 Jt Trinh. [facility] [address], [place], [address], [place]. tel:[phone] Referring Provider: Ziggy Jamison, [facility] [address], [place], [address]. tel:[phone] Office/Outpa tient Visit, Est [facility], [address], [place], [address], [place] tel:[phone] [facility] , PMR (chief complaint) Pain in unspecified jointPolymya lgia rheumaticaAn terior chest-wall pain NOS 1 Jt Trinh. [facility] [address], [place], [address], [place]. tel:[phone] Referring Provider: Ziggy Jamison, [facility] [address], [place], [address]. tel:[phone] Office/Outpa tient Visit, Est [facility], [address], [place], [address], [place] tel:[phone] [facility] , Acute bronchitis, unspecifiedP ain in unspecified jointPolymya lgia rheumatica 1 Jt Trinh. [facility] [address], [place], [address], [place]. tel:[phone] Referring Provider: Ziggy Jamison, [facility] [address], [place], [address]. tel:[phone] Office/Outpa tient Visit, Est [facility], [address], [place], [address], [place] tel:[phone] [facility] , Acute bronchitis, unspecifiedP ain in unspecified jointPolymya lgia rheumatica 0 Jt Trinh. [facility] [address], [place], [address], [place]. tel:[phone] Referring Provider: Ziggy Jamison, [facility] [address], [place], [address]. tel:[phone] Office/Outpa tient Visit, Est [facility], [address], [place], [address], [place] tel:[phone] [facility] , Pain in unspecified jointPolymya lgia rheumaticaAc [place] bronchitis, unspecified Dec- 0 Jt Trinh. [facility] [address], [place], [address], [place]. tel:[phone] Referring Provider: Ziggy Jamison, [facility] [address], [place], [address]. tel:[phone] Office/Outpa tient Visit, Est [facility], [address], [place], [address], [place] tel:[phone] [facility] , Pain in unspecified jointPolymya lgia rheumaticaEl evated erythrocyte sedimentatio n rateAcute bronchitis, unspecified 0 0 Jt Trinh. [facility] [address], [place], [address], [place]. tel:[phone] Referring Provider: Ziggy Jamison, [facility] [address], [place], [address]. tel:[phone] Office/Outpa tient Visit, Est [facility], [address], [place], [address], [place] tel:[phone] [facility] , Polymyalgia rheumaticaPa in in unspecified jointElevate d erythrocyte sedimentatio n rate Sep-2 0- 9 Jt Trinh. [facility] [address], [place], [address], [place]. tel:[phone] Referring Provider: Ziggy Jamison, [facility] [address], [place], [address]. tel:[phone] Office/Outpa tient Visit, Est [facility], [address], [place], [address], [place] tel:[phone] [facility] , Pain in unspecified jointMyalgia , unspecified siteElevated erythrocyte sedimentatio n rateOther fatigue 0201 9 Jt Trinh. [facility] [address], [place], [address], [place]. tel:[phone] Referring Provider: Ziggy Jamison, [facility] [address], [place], [address]. tel:[phone] Family History Family Member Type Diagnosis Age [...] Provider Payers Payer name Insurance type Covered alliance party ID Sumit f[id number] Social History Type Description Quantity Date Captured [...] For Referral Reason For Referral No Information History Of Present Illness Encounter Date Complaint History Of Prese nt Illness PMR PMR PMR PMR Functional Status Date Functional Assessmen t No Information Instructions Date Instruction Additional Infor mation No Information Assessments Type Assessment Date assessment halfway (current) use of syste fortino steroids assessment Polymyalgia rheumatica assessment Trigger finger, left middle fing er Mental Status Date Cognitive Assessment Orientation - [place] ed to time, place, person, situation. Patient Care Teams Name Effective Dates (start - stop) Status Members No Information
--- NOTE | 2023-05-18 09:15 | CRLHL7_ITS ---
For Patients: As a result of the Century Cures Act, medical imaging exams and procedure reports are released immediately into your electronic medical record. You may view this report before your referring provider. If you have questions, please contact your health care provider. BILATERAL SCREENING MAMMOGRAM WITH COMPUTER-AIDED DETECTION AND TOMOSYNTHESIS TECHNIQUE: CC and MLO views were obtained. These mammographic images have been obtained using full-field digital technique. These mammographic images were interpreted with the benefit of computer-aided detection. Breast Tomosynthesis was used in this interpretation. COMPARISON FILM: 05/20/18, 07/16/14. FINDINGS: There are scattered areas of fibroglandular density IMPRESSION: There is no radiographic evidence for malignancy. ASSESSMENT: BI-RADS Category 1: Negative RECOMMENDATION: Routine screening mammogram in 1 year. A lay language report of this examination will be provided to the patient. Michel Mock M.D. Diagnostic Radiologist [email or web address] LEO/Dictated by: Michel Mock MD @ 05/24/2023 9:47:00 AM (Electronically Signed)
== END 2023-05-18 08:50 | disposition home or self-care (01) ==
LOC: MAMMO 08:51
PROVIDERS: PCP Family Medicine; Visit Provider Family Medicine
DX: Z12.31 Encounter for screening mammogram for malignant neoplasm of breast (principal)
CPT/HCPCS: 77063; 77067